=== PATIENT | female | born 1995 | race African-American/Black ===

== ENCOUNTER 2019-01-08 16:05 | Emergency (ER) | payer OTHER, BC ==
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
[2019-01-08 16:37] VITALS: BP 104/71; PULSE 70; TEMP 99.1; BMI 25.7
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
== END 2019-01-08 17:11 | disposition home or self-care (01) ==
LOC: JERFT 16:05
DX: S29.012A Strain of muscle and tendon of back wall of thorax, initial encounter (principal); V49.49XA Driver injured in collision with other motor vehicles in traffic accident, initial encounter; Y92.414 Local residential or business street as the place of occurrence of the external cause; Y93.89 Activity, other specified; Y99.8 Other external cause status
CPT/HCPCS: 99281-25